=== PATIENT | female | born 1950 | race Caucasian/White ===

== ENCOUNTER → 2017-02-06 | Outpatient (CLI) | payer OTHER | LOC: CIMAGING 10:21 | PROVIDERS: ATTEND Internal Medicine | DX: Z12.31 Encounter for screening mammogram for malignant neoplasm of breast (principal) | CPT/HCPCS: G0202 ==

== ENCOUNTER 2017-04-13 12:07 | Emergency (ER) | payer OTHER ==
[2017-04-13 12:15] VITALS: TEMP 97.9
--- NOTE | 2017-04-13 12:28 | EDPHY ---
H & P Time Seen by Provider: 04/13/17 12:27 HPI/ROS: Chief complaint. Chest tightness HPI. 67-year-old female with history of asthma presents to the emergency department with increased use of her inhaler over the past several days. The inhaler also frequently increases her heart rate but she does notice that her heart seems to be beating fast. She was seen by her PCP 5 days ago for routine visit was given a flu shot and pneumococcal vaccine. She has chest tightness across the anterior chest and slight sense of shortness of breath. No cough or fever. No unusual leg pain or swelling. No change in the tightness with deep breathing or exertion. Normally she does not have to use her inhaler nearly as often as she has been using it. No known exposure to Infectious Disease. No recent travel ROS Constitutional. no fever/chills, no weakness Eyes. no problems with vision ENT. no sore throat, no nasal drainage Cardiovascular. Chest tightness Respiratory. Slight shortness of breath with no cough Abdominal. no abdominal pain, no nausea/vomiting, no diarrhea . no problems urinating MS. no calf pain/swelling, no neck/back pain, no joint pain Skin. no rash Lymph. no swollen glands Neuro. no headache, no dizziness, no difficulty walking or with speech Past Medical/Surgical History: Asthma, allergies Social History: , nonsmoker, no alcohol Smoking Status: Never smoked Physical Exam: General Appearance: Alert pleasant well-developed female mild distress. Vital signs significant for heart rate 124 Eyes: Pupils equal and round no pallor or injection. ENT, Mouth: Mucous membranes are moist. Respiratory: There are no retractions, lungs are clear to auscultation. No audible wheezing Cardiovascular: Regular rate and rhythm. Tachycardia Gastrointestinal: Abdomen is soft and nontender, no masses, bowel sounds normal. Neurological: Awake and alert, sensory and motor exams grossly normal. Skin: Warm and dry, no rashes. Musculoskeletal: Neck is supple nontender. Extremities symmetrical, full range of motion. Psychiatric: Patient is oriented X 3, there is no agitation. Constitutional: Initial Vital Signs Temperature (C) 36.6 C 04/13/17 12:11 Heart Rate 124 H 04/13/17 12:11 Respiratory Rate 20 04/13/17 12:11 Blood Pressure 173/81 H 04/13/17 12:11 O2 Sat (%) 98 04/13/17 12:11 O2 Delivery Mode Room Air Allergies/Adverse Reactions: amoxicillin [Amoxicillin] Allergy (Verified 04/13/17 12:16) Hives clarithromycin [From Biaxin] Allergy (Verified 04/13/17 12:16) Hives erythromycin base [Erythromycin Base] Allergy (Verified 04/13/17 12:16) Hives Penicillins Allergy (Verified 04/13/17 12:16) HIVES/RESP ISSUES Sulfa (Sulfonamide Antibiotics) Allergy (Verified 04/13/17 12:16) HIVES/RESP ISSUES sulfamethoxazole [From Bactrim] Allergy (Verified 04/13/17 12:16) Hives trimethoprim [From Bactrim] Allergy (Verified 04/13/17 12:16) Hives Home Medications: Medication Instructions Recorded Levothyroxine 03/23/15 Hyoscyamine 04/13/17 Xopenex 04/13/17 predniSONE 40 mg PO DAILY #8 tablet 04/13/17 Medical Decision Making - Diagnostics EKG Interpretation: EKG interpreted by me shows normal sinus rhythm with normal interval. Left axis deviation. QRS otherwise normal. There is no significant ST elevation or depression. No arrhythmia. The rate is 99 Imaging Results: Imaging Impressions Chest X-Ray 04/13/17 12:41 Impression: Findings most consistent with airways disease are seen with no definite superimposed pneumonia. Continued follow-up is recommended. Chest x-ray interpreted by me shows no pneumonia Procedures: IV normal saline ED Course/Re-evaluation: Re-evaluation at 1:55 p.m. and patient is feeling much better. Minimal to no chest tightness. Speaking in full sentences. The patient, her , and I discussed imaging, EKG, laboratory evaluation. We discussed treatment plan including criteria for return and importance of follow-up and further evaluation. She expresses understanding and agreement Differential Diagnosis: This is likely asthma exacerbation. She had flu shot pneumococcal vaccine 5 days ago which may be somewhat contributory. She has had increased use of her inhaler. I considered acute coronary syndrome as well as pneumonia. She has normal EKG and normal troponin and normal lab work. The plan will be adding a prednisone taper to the patient's treatment regimen. She and I discussed antibiotics in addition however there is no obvious source of infection at this point and she is allergic to most antibiotics and would prefer not to use antibiotics at this point - Data Points Laboratory Results: Laboratory Results 04/13/17 13:17 04/13/17 13:17 04/13/17 04/13/17 13:17 13:17 WBC 5.71 10^3/uL 10^3/uL (3.80-9.50) RBC 5.38 10^6/uL H 10^6/uL (4.18-5.33) Hgb 15.7 g/dL g/dL (12.6-16.3) Hct 47.1 % H % (38.0-47.0) MCV 87.5 fL fL (81.5-99.8) MCH 29.2 pg pg (27.9-34.1) MCHC 33.3 g/dL g/dL (32.4-36.7) RDW 12.9 % % (11.5-15.2) Plt Count 334 10^3/uL 10^3/uL (150-400) MPV 8.2 fL L fL (8.7-11.7) Neut % (Auto) 69.6 % % (39.3-74.2) Lymph % (Auto) 21.9 % % (15.0-45.0) Jackson % (Auto) 7.2 % % (4.5-13.0) Eos % (Auto) 0.4 % L % (0.6-7.6) Baso % (Auto) 0.7 % % (0.3-1.7) Nucleat RBC Rel Count 0.0 % % (0.0-0.2) Absolute Neuts (auto) 3.98 10^3/uL 10^3/uL (1.70-6.50) Absolute Lymphs (auto) 1.25 10^3/uL 10^3/uL (1.00-3.00) Absolute Monos (auto) 0.41 10^3/uL 10^3/uL (0.30-0.80) Absolute Eos (auto) 0.02 10^3/uL L 10^3/uL (0.03-0.40) Absolute Basos (auto) 0.04 10^3/uL 10^3/uL (0.02-0.10) Absolute Nucleated RBC 0.00 10^3/uL 10^3/uL (0-0.01) Immature Gran % 0.2 % % (0.0-1.1) Immature Gran # 0.01 10^3/uL 10^3/uL (0.00-0.10) Sodium 144 mEq/L mEq/L (134-144) Potassium 4.6 mEq/L mEq/L (3.5-5.2) Chloride 105 mEq/L mEq/L (97-110) Carbon Dioxide 24 mEq/l mEq/l (22-31) Anion Gap 15 mEq/L mEq/L (8-16) BUN 16 mg/dL mg/dL (7-23) Creatinine 0.9 mg/dL mg/dL (0.6-1.0) Estimated GFR > 60 Glucose 119 mg/dL H mg/dL (70-100) Calcium 10.2 mg/dL mg/dL (8.5-10.4) Troponin I < 0.012 ng/mL ng/mL (0.000-0.034) Medications Given: Discontinued Medications Sodium Chloride (Ns) 1,000 mls @ 0 mls/hr IV ONCE ONE; Wide Open PRN Reason: Protocol Stop: 04/13/17 12:41 Last Admin: 04/13/17 13:15 Dose: 1,000 mls Departure - Departure Disposition: Home, Routine, Self-Care Clinical Impression: Exacerbation of asthma Qualifiers: Asthma severity: moderate Asthma persistence: persistent Qualified Code(s): J45.41 - Moderate persistent asthma with (acute) exacerbation Condition: Good Instructions: Asthma (ED) Additional Instructions: Use prednisone daily for the next 4 days. Drink plenty of fluids and stay hydrated. Return for worsening chest discomfort or trouble breathing. Also of concern would be to feel the need to continue to use her inhaler more often than usual and you should be open re-evaluated if this is the case. Recheck in 1-2 days for worsening symptoms Referrals: NONE *PRIMARY CARE P,. [Primary Care Provider] - As per Instructions Shabnam Leigh MD [Medical Doctor] - 2-3 days, if not improved Prescriptions: predniSONE 40 mg PO DAILY #8 tablet
[2017-04-13] MEDS ORDERED: NS 1,000 ML IV ONE (12:40)
--- NOTE | 2017-04-13 13:05 | CPEKG ---
Heart Rate: 99 RR Interval: 606 P-R Interval: 156 QRSD Interval: 86 QT Interval: 364 QTC Interval: 468 P [place]: 56 QRS [place]: -5 T Wave [place]: 20 EKG Severity - BORDERLINE ECG - EKG Impression: SINUS RHYTHM EKG Impression: PROBABLE LEFT ATRIAL ABNORMALITY Electronically Signed By: Jese Elkins 13-Apr-2017 13:10:37
[2017-04-13 13:22] LABS: PLATELET COUNT 334 10^3/uL (150-400)
[2017-04-13 14:22] VITALS: BP 160/72; PULSE 91; RESP 18; O2SAT 97
== END 2017-04-13 14:10 | disposition home or self-care (01) ==
LOC: CED 12:07
DX: J45.41 Moderate persistent asthma with (acute) exacerbation (principal); E86.9 Volume depletion, unspecified
CPT/HCPCS: 71020-PO; 80048-PO; 84484-PO; 85025-PO

== ENCOUNTER → 2018-03-27 | Outpatient (CLI) | payer OTHER | LOC: CIMAGING 11:39 | PROVIDERS: ATTEND Internal Medicine | DX: Z12.31 Encounter for screening mammogram for malignant neoplasm of breast (principal); Z80.3 Family history of malignant neoplasm of breast ==